=== PATIENT | female | born 1965 | race Caucasian/White ===

== ENCOUNTER 2016-08-21 14:37 | Emergency (ER) | payer OTHER ==
[~2016-08-21] VITALS: Ht 154.9 cm; Wt 57.5 kg
[2016-08-21 14:41] VITALS: Ht 154.9 cm; Wt 57.5 kg
--- NOTE | 2016-08-21 15:34 | ERD ---
ER Documentation Chief Complaint Date/Time DATE: 08/21/16 TIME: 15:32 Chief Complaint C/O DIZZINESS FROM CLINIC HPI Patient is a 50-year-old female who presents with 1 week of mucus and chest congestion. She went to a clinic for follow-up after taking 6 days of azithromycin without improvement. While at the clinic the patient reports sudden onset constant moderate shortness of breath associated with lightheadedness and feeling hot. Patient denies chest pain, vertigo, coughing. Symptoms resolved spontaneously. Patient denies fevers, hemoptysis, or sputum production. Patient is currently asymptomatic ROS All systems reviewed and are negative except as per history of present illness. Medications Home Meds Active Scripts Guaifenesin/Pseudoephedrne HCl (Mucinex D ER 600-60 mg Tablet) 1 Each Tab.er.12h , 1 EACH PO BID for 7 Days, TAB Prov:JACK SEGURA 08/21/16 Reported Medications Levothyroxine Sodium* (Levothyroxine Sodium*) 88 Mcg Tablet, 88 MCG PO BEFORE BREAKFAST, #30 TAB 08/21/16 Allergies Allergies: Coded Allergies: No Known Allergy (Unverified , 08/21/16) PMhx/Soc Past medical history: Hypothyroidism Past surgical history: Social history: Denies tobacco or alcohol History of Surgery: Yes (removal of cyst in the breast',) Hx Miscellaneous Medical Probl: Yes (thyroid problems) Hx Alcohol Use: No Hx Substance Use: No Hx Tobacco Use: No Smoking Status: Never smoker FmHx Family History: No coronary disease Physical Exam Vitals Vital Signs Date Time Temp Pulse Resp B/P Pulse Ox O2 Delivery O2 Flow Rate FiO2 08/21/16 18:45 98.2 75 19 125/75 100 Room Air 08/21/16 14:41 98.1 80 141/78 99 Physical Exam Const: [] Head: Atraumatic Eyes: Normal Conjunctiva ENT: Normal External Ears, Nose and Mouth. Neck: Full range of motion..~ No meningismus. Resp: Clear to auscultation bilaterally Cardio: Regular rate and rhythm, no murmurs Abd: Soft, non tender, non distended. Normal bowel sounds Skin: No petechiae or rashes Back: No midline or flank tenderness Ext: No cyanosis, or edema Neur: Awake and alert Psych: Normal Mood and Affect Result Diagram: 08/21/16 0405 08/21/16 1535 Results 24 hrs Laboratory Tests Test 08/21/16 15:35 08/21/16 16:57 08/21/16 17:40 Anion Gap 17 Basophils # 0.010^3/ul Basophils % 0.5% Blood Urea Nitrogen 14mg/dl Calcium Level 9.6mg/dl Carbon Dioxide Level 30mmol/L Chloride Level 103mmol/L Creatinine 0.72mg/dl Eosinophils # 0.110^3/ul Eosinophils % 1.4% Glucose Level 83mg/dl Hematocrit 39.5% Hemoglobin 12.9g/dl Lymphocytes # 1.210^3/ul Lymphocytes % 19.7% Mean Corpuscular Hemoglobin 30.2pg Mean Corpuscular Hemoglobin Concent 32.7g/dl Mean Corpuscular Volume 92.5fl Mean Platelet Volume 10.8fl Monocytes # 0.610^3/ul Monocytes % 9.5% Neutrophils # 4.210^3/ul Neutrophils % 68.1% Nucleated Red Blood Cells # 0.010^3/ul Nucleated Red Blood Cells % 0.0/100WBC Platelet Count 19731^3/UL Potassium Level 3.7mmol/L Red Blood Count 4.2710^6/ul Red Cell Distribution Width 12.8% Sodium Level 146mmol/L Troponin I < 0.012ng/ml White Blood Count 6.210^3/ul Urine Bacteria RARE Urine Bilirubin NEGATIVE Urine Clarity CLEAR Urine Color LT. YELLOW Urine Glucose NEGATIVE% Urine Hemoglobin TRACE Urine Ketones NEGATIVE Urine Leukocyte Esterase NEGATIVE Urine Microscopic RBC 10-25/HPF Urine Microscopic WBC 0-2/HPF Urine Nitrite NEGATIVE Urine Specific [place] 1.010 Urine Squamous Epithelial Cells FEW Urine Total Protein NEGATIVE Urine Urobilinogen 0.2 E.U./dL Urine pH 8.0 Lactic Acid Level 1.0mmol/L Procedures/MDM EKG: Time 1434, rate 73, normal sinus rhythm, normal axis and intervals, no ischemic ST-T wave changes, no ectopy. Chest x-ray: No acute disease. MDM: Patient with URI symptoms for 1 week. Patient later states that she is actually had persistent cough for approximately 6 weeks. Denies fever or hemoptysis, denies chest pain. Patient had 10 minute episode that was transient of shortness of breath, dizziness that occurred while she was waiting at a clinic to be seen for her chronic cough. On arrival in ER patient is asymptomatic. She has a normal EKG no symptoms that are concerning for coronary ischemia. No PE risk factors. Has normal vital signs and labs. No signs of pneumonia on chest x-ray. Symptoms suggestive of URI and/or bronchitis. We will give prescription for guaifenesin. In case of recurrence of symptoms advised to return to ER for further evaluation. Otherwise advise follow-up with PMD. The patient appears anxious in the ER, so I suspect that anxiety could explain her symptoms. Patient may also have had vagal episode. However given URI symptoms this could also explain her symptoms. I have very low suspicion for serious condition such as cardiac arrhythmia or coronary ischemia. Departure Diagnosis: Primary Impression: Dizziness Additional Impressions: Dyspnea URI (upper respiratory infection) Condition: Stable JACK SEGURA Aug 21, 2016 15:34
[2016-08-21] MEDS ORDERED: LEVO88TA3 PO (15:41)
[2016-08-21 15:48] LABS: ADD SCAN DIFF NO
[2016-08-21 15:50] LABS: BASOPHILS % 0.5 % (0.0-2.0); EOSINOPHILS # 0.1 10^3/ul (0.0-0.5); EOSINOPHILS % 1.4 % (0.0-7.0); HEMATOCRIT 39.5 % (37.0-47.0); HEMOGLOBIN 12.9 g/dl (12.0-16.0); LYMPHOCYTES # 1.2 10^3/ul (0.8-2.9); LYMPHOCYTES % 19.7 % (15.0-51.0); MEAN CORPUSCULAR HEMOGLOBIN 30.2 pg (29.0-33.0); MEAN CORPUSCULAR HGB CONC 32.7 g/dl (32.0-37.0); MEAN CORPUSCULAR VOLUME 92.5 fl (82.0-101.0); MEAN PLATELET VOLUME 10.8 fl (7.4-10.4); MONOCYTE # 0.6 10^3/ul (0.3-0.9); MONOCYTES % 9.5 % (0.0-11.0); NEUTROPHIL # 4.2 10^3/ul (1.6-7.5); NEUTROPHILS % 68.1 % (39.0-77.0); PLATELET COUNT 278 10^3/UL (140-415); RED BLOOD COUNT 4.27 10^6/ul (4.20-5.40); RED CELL DISTRIBUTION WIDTH 12.8 % (11.5-14.5); WHITE BLOOD COUNT 6.2 10^3/ul (4.8-10.8)
--- NOTE | 2016-08-21 15:52 | RADRPT ---
PROCEDURE: Chest Radiograph. CLINICAL INDICATION: Shortness of breath TECHNIQUE: Single frontal chest radiograph. COMPARISON: None available FINDINGS: The cardiomediastinal silhouette is within normal limits. No infiltrate or effusion is seen. Th e bones are intact. IMPRESSION: 1. Unremarkable chest radiograph. RPTAT: KK .Stanislav Downey MD, MD Date Time Electronically viewed and signed by .Stanislav Downey MD, on 08/21/2016 15:52 .B/
[2016-08-21 16:00] LABS: CHLORIDE 103 mmol/L (97-110); POTASSIUM 3.7 mmol/L (3.5-5.1); SODIUM 146 mmol/L (135-144)
[2016-08-21 16:03] LABS: ANION GAP 17 (8-16); BLOOD UREA NITROGEN 14 mg/dl (7-20); CALCIUM 9.6 mg/dl (8.4-10.2); CARBON DIOXIDE 30 mmol/L (21-31); CREATININE 0.72 mg/dl (0.44-1.00); GLUCOSE 83 mg/dl (70-220)
[2016-08-21 16:16] LABS: TROPONIN-I < 0.012 ng/ml (0.00-0.12)
[2016-08-21] MEDS ORDERED: GUAI-111 PO (17:06)
[2016-08-21 17:27] LABS: ADD UMIC YES; URINE BILIRUBIN (Dip) NEGATIVE (NEGATIVE); URINE BLOOD (Dip) TRACE (NEGATIVE); URINE COLOR LT. YELLOW (YELLOW); URINE GLUCOSE (Dip) NEGATIVE (NEGATIVE); URINE KETONES (Dip) NEGATIVE (NEGATIVE); URINE LEUKOCYTE ESTERASE (Dip) NEGATIVE (NEGATIVE); URINE NITRITE (Dip) NEGATIVE (NEGATIVE); URINE TOTAL PROTEIN (Dip) NEGATIVE (NEGATIVE); URINE UROBILINOGEN (Dip) 0.2 E.U./dL (0.1-1.0)
[2016-08-21 17:39] LABS: BACTERIA,URINE RARE; SQUAMOUS EPITHELIAL CELL,UR FEW
[2016-08-21 18:45] VITALS: BP 125/75; PULSE 75; RESP 19; TEMP 98.2
== END 2016-08-21 18:46 | disposition home or self-care (01) ==
LOC: E/R 14:37
DX: R42 Dizziness and giddiness (principal); R06.00 Dyspnea, unspecified; J06.9 Acute upper respiratory infection, unspecified; E03.9 Hypothyroidism, unspecified
CPT/HCPCS: 71010; 80048; 81001; 83605; 84484; 85025; 93005; Z7502; 81003